=== PATIENT | male | born 1980 | race Two or more races ===

== ENCOUNTER 2018-09-18 14:03 | Emergency (ER) | payer SELFPAY ==
[2018-09-18] MEDS ORDERED: LIDOCAINE 1% INJ-PF (10 MG/ML) 30 ML SDV INJ ONE (14:33)
--- NOTE | 2018-09-18 14:39 | ER Document Report ---
ED General - General Chief Complaint: Skin Problem Stated Complaint: BUMP ON BACK OF HEAD Time Seen by Provider: 09/18/18 14:27 Mode of Arrival: Ambulatory Information source: Patient TRAVEL OUTSIDE OF THE [place] IN LAST 30 DAYS: No - HPI Patient complains to provider of: 2 abscesses on the back of the head Onset: Other - The top abscess is been present for about 20 days, the bottom abscess is been present for just over a week Onset/Duration: Gradual Severity: Severe Pain Level: 4 Associated symptoms: denies: Chills, Fever Exacerbated by: Denies Relieved by: Denies Similar symptoms previously: No Recently seen / treated by doctor: No Notes: 37-year-old male coming in today with 2 abscesses on the back of his head. Evidently 1 of them is been drained not too long ago. Completed full course of antibiotics. Now he has a smaller abscess just below the original abscess. No fevers or shaking chills. No nausea or vomiting. - Related Data Allergies/Adverse Reactions: No Known Allergies Allergy (Unverified 09/18/18 14:32) Past Medical History - General Information source: Patient - Social History Smoking Status: Never Smoker Chew tobacco use (# tins/day): No Frequency of alcohol use: None Drug Abuse: None Family History: Reviewed & Not Pertinent Patient has suicidal ideation: No Patient has homicidal ideation: No Renal/ Medical History: Denies: Hx Peritoneal Dialysis Review of Systems - Review of Systems Notes: Constitutional: No fevers. No chills. EENT: No eye redness. No eye pain. No ear pain. No sore throat. Cardiovascular: No chest pain. No palpitations. Respiratory: No cough. No shortness of breath. No respiratory distress. Gastrointestinal: No abdominal pain. No nausea, vomiting, or diarrhea. Genitourinary: Atraumatic. No lesions. No pain. No discharge. Musculoskeletal: Atraumatic. No swelling. No deformities. Skin: Abscesses to back of head Lymphatic: No swollen lymph nodes. Neurologic: No headache. No syncope. Psychiatric: No suicidal or homicidal ideation. Physical Exam - Vital signs Vitals: Temp Pulse Resp BP Pulse Ox 99.0 F 69 16 127/73 H 99 09/18/18 14:11 09/18/18 14:11 09/18/18 14:11 09/18/18 14:11 09/18/18 14:11 - Notes Notes: General: Well-developed, well-nourished. In no acute distress. Non-toxic appearing. Cardiac: Well-perfused. Regular rate and rhythm. No murmurs, rubs, or gallops. Pulmonary: No respiratory distress. No cyanosis. Bilateral lung hernandez are clear to auscultation. Abdominal: Non-distended. Non-rigid. Bowels sounds are present in all four quadrants. No guarding or rebound. HEENT: Head is atraumatic. Conjunctivae not reddened. No tearing. PERRL. EOMI. Orbits atraumatic. No periorbital swelling or erythema. Oropharynx is without erythema, swelling, or exudates. There is an indurated subcutaneous semi- fluctuant swelling to the mid occiput. There is a small scab present. Just below it there is a 1 cm diameter raised scabbed semi-fluctuant lesion. Localized erythema. Neck: Supple. No adenopathy. No meningismus. Dermatologic: Warm with good turgor. No rash. Atraumatic. Chest: Atraumatic. No chest wall tenderness to palpation. Musculoskeletal: Moves all extremities well. No range of motion deficits. no muscular or joint tenderness. No paraspinal muscle tenderness. no midline spinal tenderness or step-off. Genitourinary: Examination deferred Neurologic: No gross neurologic deficits. Psychiatric: Normal mood. Course - Re-evaluation Re-evalutation: 09/18/18 14:38 We will go ahead and incise and drain both lesions. Suspect will probably not have much drainage from either lesion. Put him on typical Keflex and Bactrim and see how he does. - Vital Signs Vital signs: Temp Pulse Resp BP Pulse Ox 99.0 F 69 16 127/73 H 99 09/18/18 14:11 09/18/18 14:11 09/18/18 14:11 09/18/18 14:11 09/18/18 14:11 Procedures - Incision and Drainage Head Time completed: 15:14 Type: Simple Anesthetic type: 1% Lidocaine mL's of anesthetic: 2 Blade size: 11 I&D procedure: Shurclens applied Incision Method: Incision made by scalpel Amount/type of drainage: 3-5 ml sanguinous Notes: 09/18/18 15:15 Tolerated well Second abscess Time completed: 15:15 Type: Simple Anesthetic type: 1% Lidocaine mL's of anesthetic: 2 Blade size: 11 I&D procedure: Shurclens applied Incision Method: Incision made by scalpel Amount/type of drainage: Small amount 1-2 cc purulent drainage Notes: 09/18/18 15:16 Tolerated well Discharge - Discharge Clinical Impression: Scalp abscess Condition: Good Disposition: HOME, SELF-CARE Instructions: Abscess ([facility]), Post Incision and Drainage, Trimethoprim-Sulfa ([facility]), Cephalexin ([facility]), Oral Narcotic Medication ([facility]) Prescriptions: Oxycodone HCl/Acetaminophen [Percocet 5-325 mg Tablet] 1 tab PO Q6HP PRN #8 tablet PRN Reason: Cephalexin Monohydrate [Keflex 500 mg Capsule] 500 mg PO Q6H 10 Days #40 capsule Sulfamethoxazole/Trimethoprim [Bactrim Ds Tablet] 1 each PO BID 10 Days #20 tablet Referrals: OCTAVIA DE EMERGENCIAS, ESTA [Other] - Follow up as needed Print Language: Swiss
[2018-09-18 16:02] VITALS: BP 133/89
== END 2018-09-18 16:02 | disposition home or self-care (01) ==
LOC: ER 14:03
PROC: 0H90XZZ Drainage of Scalp Skin, External Approach (ICD-10-PCS; principal; 2018-09-18)
DX: L02.811 Cutaneous abscess of head [any part, except face] (principal)
CPT/HCPCS: 99283; 10061; J3490